=== PATIENT | female | born 1950 | race Caucasian/White ===

== ENCOUNTER 2021-07-02 22:58 | Inpatient (IN) | payer MEDICARE, OTHER ==
[~2021-07-02] VITALS: Ht 175.3 cm; Wt 72.6 kg
--- NOTE | 2021-07-02 23:15 | NUR ---
SYBIL FROM [facility] FOR DIRECT ADMIT TO PSYCH UNIT. PT IS MEDICALLY CLEARED AT THE ER AND NEEDS PSYCH EVAL. PT WAS ASSISTED IN BED 13 ER UNDER SUPERVISION OF A SITTER. SI PRECAUTION IMPLEMENTED . VSS. WILL CONT TO MONITOR ,
--- NOTE | 2021-07-03 00:35 | NUR ---
[facility] SWAB COLLECTED AND SENT TO LAB. PATIENT'S BELONGINGS LIST DONE.
[2021-07-03] MEDS ORDERED: METO25TA4 PO (01:49)
[2021-07-03] MEDS ORDERED: MELA5TAB PO (01:49)
[2021-07-03] MEDS ORDERED: DIVA-78 PO (01:49)
[2021-07-03] MEDS ORDERED: AMLO-212 PO (01:49)
[2021-07-03] MEDS ORDERED: QUET50TA PO (01:49)
[2021-07-03] MEDS ORDERED: FLUO20CA36 PO (01:49)
--- NOTE | 2021-07-03 01:55 | NUR ---
REPORT GIVEN TO BYRON AT [facility]
--- NOTE | 2021-07-03 02:16 | NUR ---
PT WAS TTRANSFERRED TO [facility] IN STABLE CONDITION
[2021-07-03] MEDS ORDERED: clonazePAM 0.5 MG TABLET PO PRN (03:00)
[2021-07-03] MEDS ORDERED: BLOOD SUGAR DIAGNOSTIC 1 EACH STRIP IN ONE (03:00)
[2021-07-03] MEDS ORDERED: MAGNESIUM HYDROXIDE 30 ML UDC PO PRN (03:00)
--- NOTE | 2021-07-03 03:52 | NUR ---
[facility] INDUSTRIAL GAS SERVICER NOTES: PATIENT ARRIVED THIS UNIT ON A STRETCHER WITH AN ER ESCORT AT 0225. PATIENT IS ON A 5150 HOLD FOR DTS AND GD. HOLD WAS PLACED ON 07/03/21 @ 0101. PER HOLD PATIENT VERBALIZED SI, HAS HX OF BIPOLAR AND DEPRESSION, HAS NOT BEEN COMPLIANT WITH HER MEDS, AND IS UNABLE TO CARE FOR HER SELF. UPON FACE TO FACE EVALUATION, PATIENT IS A/O X1-2, APPEARS DEPRESSED, FLAT AFFECT, LABILE, ANXIOUS, DISORGANIZED, DISORIENTED, AND UNABLE TO GIVE APPROPRIATE ANSWERS TO QUESTIONS. PATIENT RESPIRATION IS EVEN AND UNLABORED WITH EQUAL RISE AND FALL OF THE CHEST, ON ROOM AIR. PATIENT HAS NO S/S OF DISTRESS. PATIENT DENIES SI/HI AT THIS TIME. PATIENT ADVISED OF HER HOLD AND PATIENT RIGHTS BOOKLET AND PRESCRIPTION GUIDE BOOKLET GIVEN. PATIENT BELONGINGS CHECKED FOR CONTRABAND. SKIN ASSESSMENT DONE, PICTURES TAKEN AND PLACED IN PATIENT CHART. BS92MG/DL. PATIENT REFUSED TO SIGN ADMISSION PAPERWORK. PATIENT IS FULLY VACCINATED WITH PFIZER. PATIENT IS UNDER THE PSYCHIATRIC CARE OF DR. JARAMILLO AND MEDICAL CARE OF THERESE. MED RECON DONE. PATIENT ORIENTED TO ROOM AND STAFF. PATIENT HAS WEAK GAIT. PATIENT EDUCATED ON THE USE OF CALL CISNEROS TO ASK FOR ASSISTANCE. PATIENT BED SIDE RAILS UP X2 FOR SAFETY. BED ALARM ON. BED LOCKED AND IN LOWEST POSITION. PATIENT OFFERED FLUID AND SNACKS TOLERATED. WILL CONTINUE TO MONITOR Q15 MINUTES FOR MOOD, SAFETY AND BEHAVIOR.
[2021-07-03 04:31] VITALS: BP 158/95
[2021-07-03 04:37] VITALS: BP 158/95
[2021-07-03 08:00] VITALS: BP 158/77
--- NOTE | 2021-07-03 09:00 | NUR ---
DR GRANDA REMINDED OF MED RECON FOR PT.
--- NOTE | 2021-07-03 09:00 | NUR ---
CALLED PT'S SISTER NUMBER. NO ANSWER AT THIS TIME.
--- NOTE | 2021-07-03 09:49 | NUR ---
VIDYA Initial Discharge Plan: Patient currently resides at home located at [address] [place] [address]; ([phone]). Patient would want to return back home upon dc. Patient's sister Khalif ([phone]) is involved in patient's care. VIDYA will work with the MD and treatment team to coordinate appropriate discharge.
[2021-07-03] MEDS: QUETIAPINE FUMARATE 25 MG TABLET PO SCH ×3 (10:20→21:09)
--- NOTE | 2021-07-03 10:35 | NUR ---
VIDYA Family Contact: VIDYA spoke with patient's sister Khalif ([phone]) and discussed treatment and discharge plan. Sister stated she is the DPOA and will send the documents. Sister expressed that pt has had three brain injuries. VIDYA shared this information with JUNE Metcalf.
--- NOTE | 2021-07-03 11:00 | NUR ---
PER SOCIAL SERVICE, FAMILY MEMBER MENTIONED PT HAS BEEN EXPOSED TO A COVID POSITIVE PERSON PRIOR TO ADMISSION TO [facility]. DR GRANDA ORDERED RAPID COVID ANTIGEN TEST STAT.
--- NOTE | 2021-07-03 12:30 | NUR ---
RAPID COVID 19 TEST RESULT IS NEGATIVE.
[2021-07-03 16:00] VITALS: BP 145/79
--- NOTE | 2021-07-03 19:46 | NUR ---
[facility] RN NOTES: PATIENT IS AMBULATING WITH UNSTEADY GAIT, WHEN OFFERED A WALKER BUT REFUSED. PER PATIENT, "I DON'T NEED THAT, I'M FINE".
[2021-07-03 20:00] VITALS: BP 130/86
[2021-07-03] MEDS: TRAZODONE 50 MG TABLET PO SCH (21:09)
--- NOTE | 2021-07-04 06:23 | NUR ---
[facility] RN NOTES: PATIENT REFUSED AM LABS.
[2021-07-04 08:00] VITALS: BP 116/60
[2021-07-04] MEDS: QUETIAPINE FUMARATE 25 MG TABLET PO SCH ×3 (08:22→21:25)
[2021-07-04 12:17] LABS: ALBUMIN 2.9 g/dL (3.4-5.0); BILIRUBIN,TOTAL 0.3 mg/dL (0.2-1.0); CALCIUM, SERUM 9.7 mg/dL (8.5-10.1); CREATININE 0.8 mg/dL (0.6-1.3); POTASSIUM 4.4 mmol/L (3.5-5.1); TOTAL PROTEIN, SERUM 6.3 g/dL (6.4-8.2)
[2021-07-04 12:37] LABS: CHOLESTEROL 246 mg/dL (<200); HDL CHOLESTEROL 49 mg/dL (40-60); LDL 165 mg/dL (0-99); TRIGLYCERIDES 128 mg/dL (30-150)
--- NOTE | 2021-07-04 13:29 | NUR ---
RN-CO: DR JARAMILLO MADE AWARE THAT THE LEGAL HOLD IS EXPIRING.
[2021-07-04 16:00] VITALS: BP 118/70
--- NOTE | 2021-07-04 16:53 | NUR ---
RN-CO: ENCOURAGED TO INCREASE FLUID INTAKE. OFFERED WATER Q 3 HOURS.
[2021-07-04] MEDS: ACETAMINOPHEN 325 MG TABLET PO PRN (18:27)
[2021-07-04] MEDS: ATORVASTATIN 10 MG TABLET PO SCH (21:25)
[2021-07-04] MEDS: TRAZODONE 50 MG TABLET PO SCH (21:25)
[2021-07-04] MEDS: TEMAZEPAM 7.5 MG CAPSULE PO PRN (21:26)
[2021-07-05 08:00] VITALS: BP 154/85
[2021-07-05] MEDS: ASPIRIN EC 81 MG TABLET.DR PO SCH (09:36)
[2021-07-05] MEDS: QUETIAPINE FUMARATE 25 MG TABLET PO SCH ×3 (09:36→21:07)
[2021-07-05] MEDS: ACETAMINOPHEN 325 MG TABLET PO PRN ×2 (10:53→20:23)
[2021-07-05 16:00] VITALS: BP 121/64
--- NOTE | 2021-07-05 19:30 | NUR ---
[facility] RN NOTE, RECEIVED PATIENT AWAKE AND IN BED, PATIENT HAS NO S/S OR COMPLAINTS OF PAIN AT THIS TIME. PATIENT IS DISPLAYING NO S/S OF APPARENT DISTRESS AT THIS TIME. PATIENT BREATHING IS UNLABORED WITH EQUAL RISE AND FALL OF THE CHEST. PATIENT IS ALERT AND ORIENTED X 2 ON ROOM AIR WITH A SPO2 99%. PATIENT IS COMPLIANT WITH MEDICATIONS, LABILE, CAN BE IRRITABLE AT THIS TIME, POLITE, ISOLATIVE, AND COOPERATIVE. PATIENT DENIES SUICIDAL AND HOMICIDAL IDEATIONS AT THIS TIME. PATIENT ASSISTED WITH TURNING AND REPOSITIONING Q2HR AND PRN FOR COMFORT AND CIRCULATION. PATIENT HAS NO NEEDS AT THIS TIME. PATIENT EDUCATED ON THE USE OF THE CALL CISNEROS. PATIENT BED SIDE RAILS UP X 2 FOR SAFETY. PATIENT BED IS LOCKED, LOW, WITH BED ALARM ON. WILL CONTINUE TO MONITOR THIS PATIENT Q15 MINUTES WITH THE HELP OF STAFF TO MAINTAIN SAFETY.
--- NOTE | 2021-07-05 20:23 | NUR ---
[facility] RN NOTE, PATIENT HAS A COMPLAINT OF CHRONIC BILATERAL HAND AT 2 OUT 10 ON THE PAIN SCALE AND IS REQUESTING TYLENOL AT THIS TIME. PATIENT VITAL SIGNS ARE STABLE. GAVE TYLENOL 650MG PO Q6HR PRN ORDERED. WILL REASSESS PAIN AND I WILL CONTINUE TO MONITOR THIS PATIENT WITH THE HELP OF STAFF.
[2021-07-05 20:34] VITALS: BP 121/61
[2021-07-05] MEDS: ATORVASTATIN 10 MG TABLET PO SCH (21:07)
[2021-07-05] MEDS: TRAZODONE 50 MG TABLET PO SCH (21:07)
[2021-07-06 08:00] VITALS: BP 155/71
--- NOTE | 2021-07-06 08:42 | NUR ---
DPOA Documents: Patient's sister Khalif ([phone]) sent DPOA documents to this telegraphic typewriter repairer and sent a history of pt's medical issues. SW placed in patient's chart.
[2021-07-06] MEDS: ASPIRIN EC 81 MG TABLET.DR PO SCH (09:07)
[2021-07-06] MEDS: QUETIAPINE FUMARATE 25 MG TABLET PO SCH ×3 (09:07→21:01)
[2021-07-06] MEDS: ACETAMINOPHEN 325 MG TABLET PO PRN ×3 (10:30→22:50)
--- NOTE | 2021-07-06 10:33 | NUR ---
Patient c/o right wrist pain 6/10, given Tylenol as prn order.
--- NOTE | 2021-07-06 12:10 | NUR ---
VIDYA Family Contact: VIDYA notified patient's DPOA Khalif ([phone]) that pt's hearing is today for 5250. VIDYA contacted multiple times and left a voicemail.
--- NOTE | 2021-07-06 12:11 | NUR ---
Court Hearing: Patient's court hearing for 2260 was today and it was upheld for GD.
--- NOTE | 2021-07-06 12:12 | NUR ---
VIDYA Family Contact: SW notified patient's DPOA Khalif ([phone]) and left a voicemail of pt's 5250 outcome.
[2021-07-06 16:00] VITALS: BP 134/92
--- NOTE | 2021-07-06 17:30 | NUR ---
Given Tylenol for right wrist pain 6/10 pain scale. Reassessed pain in one hour and patient denies pain at this time. Continue to monitor.
[2021-07-06 20:26] VITALS: BP_SYST 77
[2021-07-06] MEDS: ATORVASTATIN 10 MG TABLET PO SCH (21:01)
[2021-07-06] MEDS: TRAZODONE 50 MG TABLET PO SCH (21:01)
[2021-07-07] MEDS: TEMAZEPAM 7.5 MG CAPSULE PO PRN (01:09)
--- NOTE | 2021-07-07 01:09 | NUR ---
[facility] NOTES: ANXIETY PATIENT C/O INABILITY TO SLEEP. PRN RESTORIL 15MG PO GIVEN. WILL CONTINUE TO MONITOR. Addendum: 07/07/21 at 0413 by KRISTOPHER HAYES RN CORRECTION: FOR INSOMNIA
[2021-07-07 08:00] VITALS: BP 158/78
[2021-07-07] MEDS: ASPIRIN EC 81 MG TABLET.DR PO SCH (08:24)
[2021-07-07] MEDS: QUETIAPINE FUMARATE 25 MG TABLET PO SCH ×3 (08:25→22:15)
[2021-07-07 16:00] VITALS: BP 133/71
[2021-07-07] MEDS: ACETAMINOPHEN 325 MG TABLET PO PRN (16:40)
[2021-07-07 20:11] VITALS: BP 144/74
[2021-07-07 20:38] VITALS: BP 144/74
[2021-07-07] MEDS: TRAZODONE 50 MG TABLET PO SCH (22:15)
[2021-07-07] MEDS: ATORVASTATIN 10 MG TABLET PO SCH (22:15)
[2021-07-08 08:00] VITALS: BP 137/73
[2021-07-08] MEDS: QUETIAPINE FUMARATE 25 MG TABLET PO SCH ×3 (08:44→21:49)
[2021-07-08] MEDS: ASPIRIN EC 81 MG TABLET.DR PO SCH (08:45)
[2021-07-08 16:00] VITALS: BP 140/91
[2021-07-08] MEDS: ACETAMINOPHEN 325 MG TABLET PO PRN ×2 (18:01→20:00)
[2021-07-08 20:00] VITALS: BP 153/80
[2021-07-08] MEDS: TRAZODONE 50 MG TABLET PO SCH (21:49)
[2021-07-08] MEDS: ATORVASTATIN 10 MG TABLET PO SCH (21:49)
[2021-07-09 08:00] VITALS: BP 139/91
[2021-07-09] MEDS: ASPIRIN EC 81 MG TABLET.DR PO SCH (08:12)
[2021-07-09] MEDS: QUETIAPINE FUMARATE 25 MG TABLET PO SCH ×2 (08:12→17:36)
[2021-07-09] MEDS: SERTRALINE HCL 25 MG TABLET PO SCH (09:21)
--- NOTE | 2021-07-09 15:29 | NUR ---
VIDYA Individual Therapy: SW met with patient to discuss patient's presenting problem depression. Patient presented with depressed mood. She did appear to have appropriate eye contact. Patient did appear to be anxious and disorganized. SW explored pt.s progress. Pt. stated she wanted medication to cope with her aggression toward her sister at home. Pt. stated her sister was her caregiver and did not allow her to do things at home. Pt. stated she did not want to be angry with her sister and was excited about possibly receiving new medicine from the psychiatrist. Pt. is understanding of her current symptom and mental health. SW provided active listening and empathic understanding.
[2021-07-09 16:00] VITALS: BP 146/79
[2021-07-09] MEDS: ACETAMINOPHEN 325 MG TABLET PO PRN (17:54)
--- NOTE | 2021-07-09 17:56 | NUR ---
Patient c/o neck pain 01/06 medicated with Tylenol 650mg will continue to monitor for pain .
[2021-07-09 20:07] VITALS: BP 140/54
[2021-07-09] MEDS: ATORVASTATIN 10 MG TABLET PO SCH (21:14)
[2021-07-09] MEDS: TEMAZEPAM 7.5 MG CAPSULE PO PRN (21:14)
[2021-07-09] MEDS: TRAZODONE 50 MG TABLET PO SCH (21:14)
[2021-07-09] MEDS ORDERED: QUETIAPINE FUMARATE 25 MG TABLET PO SCH (22:00)
[2021-07-10] MEDS: SERTRALINE HCL 25 MG TABLET PO SCH (09:54)
[2021-07-10] MEDS: ASPIRIN EC 81 MG TABLET.DR PO SCH (09:54)
[2021-07-10] MEDS: QUETIAPINE FUMARATE 25 MG TABLET PO SCH ×3 (09:55→21:09)
[2021-07-10 11:29] VITALS: BP 127/80
[2021-07-10 16:00] VITALS: BP 158/90
[2021-07-10 20:00] VITALS: BP 116/65
[2021-07-10 20:05] VITALS: BP 116/65
[2021-07-10] MEDS: ATORVASTATIN 10 MG TABLET PO SCH (21:07)
[2021-07-10] MEDS: TRAZODONE 50 MG TABLET PO SCH (21:35)
[2021-07-11 08:00] VITALS: BP 148/73
[2021-07-11] MEDS: QUETIAPINE FUMARATE 25 MG TABLET PO SCH ×3 (08:20→21:14)
[2021-07-11] MEDS: ASPIRIN EC 81 MG TABLET.DR PO SCH (08:21)
--- NOTE | 2021-07-11 08:40 | NUR ---
VIDYA Family Contact: VIDYA attempted to contact CLIFFGLORIA Cuadra ([phone]) phone number stated that she cannot accept calls at this time. VIDYA will attempt again.
--- NOTE | 2021-07-11 08:53 | NUR ---
SW Individual Note: SW met with patient to discuss patient's presenting problem depression. Patient presented with a depressed mood and appeared restless. Patient provided appropriate eye contact. SW explored patients progress. Pt. stated she wanted to explore ways to be less angry with her sister at home. Pt. stated she was having less SI. Pt. stated they were feeling improvement. Pt. stated she wanted her sister to visit and was going to call her today. SW provided active listening.
[2021-07-11] MEDS: SERTRALINE HCL 25 MG TABLET PO SCH (09:37)
[2021-07-11 16:00] VITALS: BP 122/71
[2021-07-11] MEDS: ACETAMINOPHEN 325 MG TABLET PO PRN (16:38)
--- NOTE | 2021-07-11 18:56 | NUR ---
RN ENDING NOTES PATIENT AMBULATED IN HALLWAY MOST OF DAY SHIFT GAIT STEADY, ABLE TO MAKE NEEDS KNOWN, A & 0 X2, REDIRECTED AND EXPLAINED MEDICATIONS TO HER, REPEATED WORDS AND WORD SALAD OFTEN, ABLE TO MAKE NEEDS KNOWN HOWEVER VERY NEEDY AND ATTENTION SEEKING CONSTANTLY NEEDING VALIDATION AND ATTENTION, 1800 SHE WENT TO BED TO SLEEP, BED LOW TO FLOOR, WHEELS LOCKED, ALL NEEDS TENDED FOR IN A TIMELY MANNER.
[2021-07-11 20:00] VITALS: BP 107/56
[2021-07-11] MEDS: TRAZODONE 50 MG TABLET PO SCH (21:14)
[2021-07-11] MEDS: ATORVASTATIN 10 MG TABLET PO SCH (21:14)
[2021-07-12 08:00] VITALS: BP 136/63
[2021-07-12] MEDS: QUETIAPINE FUMARATE 25 MG TABLET PO SCH ×4 (08:12→21:08)
[2021-07-12] MEDS: ASPIRIN EC 81 MG TABLET.DR PO SCH (08:12)
[2021-07-12] MEDS: SERTRALINE HCL 25 MG TABLET PO SCH (08:12)
--- NOTE | 2021-07-12 08:17 | NUR ---
Seen by Ashley Staton with new orders to increase Seroquel to 25mg by mouth twice a day and increase bedtime dose of Seroquel to 75mg by mouth, orders inputted by Ewelnia Staton. No apparent distress noted with patient at this time, will monitor closely for any changes.
--- NOTE | 2021-07-12 08:39 | NUR ---
VIDYA Family Contact: VIDYA attempted to contact CLIFFGLORIA Cuadra ([phone]) phone number stated that she cannot accept calls at this time. VIDYA will attempt again.
--- NOTE | 2021-07-12 08:44 | NUR ---
VIDYA Note: VIDYA asked pt why sister Khalif is not answering phone calls. She stated that she [place] be [place] and she did not delete her voicemails. She stated it might be full and we are unable to leave her a voicemail.
--- NOTE | 2021-07-12 10:25 | NUR ---
VIDYA Coordination of Care: Patient was referred for intake evaluation at [facility] located at [address] [place] [address] [address], [place] [address]; ([phone]) on July 19 at 10:30AM scheduled by Joseline.
[2021-07-12] MEDS: ACETAMINOPHEN 325 MG TABLET PO PRN (10:36)
--- NOTE | 2021-07-12 10:36 | NUR ---
Tylenol 650 mg given PO as needed for generalized body pain 2/10 per MD order when non pharmacological measures ineffective, will reassess pain in 30-60minutes, will continue to monitor for any changes.
[2021-07-12 16:00] VITALS: BP 154/98
[2021-07-12] MEDS: TRAZODONE 50 MG TABLET PO SCH (21:07)
[2021-07-12] MEDS: ATORVASTATIN 10 MG TABLET PO SCH (21:08)
[2021-07-12] MEDS: TEMAZEPAM 7.5 MG CAPSULE PO PRN (23:29)
--- NOTE | 2021-07-12 23:31 | NUR ---
[facility] RN NOTES: PATIENT REQUESTED FOR SLEEP MEDICATION D/T INSOMNIA. RESTORIL 15MG GIVEN PO PRN ORDERED AT 2329. WILL CONTINUE TO MONITOR.
[2021-07-13] MEDS: ACETAMINOPHEN 325 MG TABLET PO PRN ×2 (07:15→15:18)
[2021-07-13 08:00] VITALS: BP 133/87
[2021-07-13] MEDS: QUETIAPINE FUMARATE 25 MG TABLET PO SCH ×3 (08:21→21:01)
[2021-07-13] MEDS: ASPIRIN EC 81 MG TABLET.DR PO SCH (08:21)
[2021-07-13] MEDS: SERTRALINE HCL 25 MG TABLET PO SCH (08:21)
--- NOTE | 2021-07-13 10:26 | NUR ---
VIDYA Family Contact: VIDYA attempted to contact CLIFFGLORIA Cuadra ([phone]) phone number stated that she cannot accept calls at this time. VIDYA will attempt again.
[2021-07-13 16:00] VITALS: BP 129/61
[2021-07-13] MEDS: TRAZODONE 50 MG TABLET PO SCH (21:01)
[2021-07-13] MEDS: ATORVASTATIN 10 MG TABLET PO SCH (21:01)
[2021-07-14] MEDS: ACETAMINOPHEN 325 MG TABLET PO PRN ×2 (06:17→12:20)
--- NOTE | 2021-07-14 06:19 | NUR ---
[facility] RN NOTE, PATIENT HAS A COMPLAINT OF A HEADACHE AT 2 OUT 10 ON THE PAIN SCALE AND IS REQUESTING TYLENOL AT THIS TIME. PATIENT VITAL SIGNS ARE STABLE. GAVE TYLENOL 650MG PO Q6HR PRN ORDERED. WILL REASSESS PAIN AND I WILL CONTINUE TO MONITOR THIS PATIENT WITH THE HELP OF STAFF.
[2021-07-14 08:00] VITALS: BP 130/79
[2021-07-14] MEDS: QUETIAPINE FUMARATE 25 MG TABLET PO SCH ×3 (08:28→21:03)
[2021-07-14] MEDS: SERTRALINE HCL 25 MG TABLET PO SCH (08:28)
[2021-07-14] MEDS: ASPIRIN EC 81 MG TABLET.DR PO SCH (08:28)
[2021-07-14 12:53] LABS: BASOPHILS # (AUTO) 0.1 K/uL (0.0-0.2); BASOPHILS % (AUTO) 1.1 % (0.0-2.0); EOSINOPHILS % (AUTO) 7.2 % (0.0-6.0); HEMATOCRIT 38 % (33-45); HEMOGLOBIN 12.8 g/dL (11.5-14.8); LYMPHOCYTES # (AUTO) 1.7 K/uL (0.8-4.8); LYMPHOCYTES % (AUTO) 23.5 % (20.0-44.0); MEAN CORPUSCULAR HGB CONC 34 g/dl (31.0-36.0); MEAN CORPUSCULAR VOLUME 99 fL (82-100); MONOCYTES # (AUTO) 0.6 K/uL (0.1-1.30); MONOCYTES % (AUTO) 8.3 % (2.0-12.0); NEUTROPHILS # (AUTO) 4.3 K/uL (1.8-8.9); NEUTROPHILS % (AUTO) 59.9 % (43.0-81.0); PLATELET COUNT (AUTO) 218 K/uL (150-450); RED BLOOD CELL COUNT(AUTO) 3.86 MIL/uL (4.0-5.2); WHITE BLOOD COUNT (AUTO) 7.2 K/uL (4.3-11.0)
[2021-07-14 12:58] LABS: ALBUMIN 3.2 g/dL (3.4-5.0); BILIRUBIN,TOTAL 0.3 mg/dL (0.2-1.0); CALCIUM, SERUM 9.3 mg/dL (8.5-10.1); CREATININE 0.7 mg/dL (0.6-1.3); MAGNESIUM 2.2 mg/dL (1.8-2.4); POTASSIUM 4.2 mmol/L (3.5-5.1); TOTAL PROTEIN, SERUM 6.7 g/dL (6.4-8.2)
[2021-07-14 16:00] VITALS: BP 149/79
[2021-07-14] MEDS: TRAZODONE 50 MG TABLET PO SCH (21:02)
[2021-07-14] MEDS: ATORVASTATIN 10 MG TABLET PO SCH (21:03)
[2021-07-14 22:18] VITALS: BP 130/79
[2021-07-15] MEDS: TEMAZEPAM 7.5 MG CAPSULE PO PRN ×2 (01:01→21:42)
[2021-07-15 08:00] VITALS: BP 143/75
[2021-07-15] MEDS: ASPIRIN EC 81 MG TABLET.DR PO SCH (08:49)
[2021-07-15] MEDS: SERTRALINE HCL 25 MG TABLET PO SCH (08:49)
[2021-07-15] MEDS: QUETIAPINE FUMARATE 25 MG TABLET PO SCH ×3 (08:49→21:19)
[2021-07-15 16:00] VITALS: BP 118/74
[2021-07-15] MEDS: ACETAMINOPHEN 325 MG TABLET PO PRN (16:42)
[2021-07-15 20:00] VITALS: BP 120/66
--- NOTE | 2021-07-15 20:00 | NUR ---
[facility] NOTES PATIENT REFUSED WEEKLY SKIN ASSESSMENT. EXPLAINED RISKS AND BENEFITS. PATIENT CONTINUED TO REFUSE. PATIENT STATES, "I AM TIRED".
[2021-07-15] MEDS: ATORVASTATIN 10 MG TABLET PO SCH (21:19)
[2021-07-15] MEDS: TRAZODONE 50 MG TABLET PO SCH (21:19)
--- NOTE | 2021-07-15 21:42 | NUR ---
[facility] NOTES: INSOMNIA PATIENT C/O INABILITY TO SLEEP. PRN RESTORIL 15MG PO GIVEN. WILL CONTINUE TO MONITOR.
[2021-07-16 08:00] VITALS: BP 159/91
--- NOTE | 2021-07-16 08:38 | NUR ---
VIDYA Family Contact: VIDYA attempted to contact CLIFFGLORIA Cuadra ([phone]) phone number stated that she cannot accept calls at this time. VIDYA will attempt again.
[2021-07-16] MEDS: ASPIRIN EC 81 MG TABLET.DR PO SCH (08:46)
[2021-07-16] MEDS: SERTRALINE HCL 25 MG TABLET PO SCH (08:46)
[2021-07-16] MEDS: QUETIAPINE FUMARATE 25 MG TABLET PO SCH ×3 (08:47→21:20)
[2021-07-16] MEDS: ACETAMINOPHEN 325 MG TABLET PO PRN (19:21)
[2021-07-16 19:40] VITALS: BP 143/57
[2021-07-16] MEDS: ATORVASTATIN 10 MG TABLET PO SCH (21:20)
[2021-07-16] MEDS: TRAZODONE 50 MG TABLET PO SCH (21:20)
[2021-07-17 08:00] VITALS: BP 129/82
[2021-07-17] MEDS: ASPIRIN EC 81 MG TABLET.DR PO SCH (08:03)
[2021-07-17] MEDS: SERTRALINE HCL 25 MG TABLET PO SCH (08:03)
[2021-07-17] MEDS: QUETIAPINE FUMARATE 25 MG TABLET PO SCH ×3 (08:04→21:01)
--- NOTE | 2021-07-17 08:47 | NUR ---
VIDYA Family Contact: VIDYA attempted to contact CLIFFGLORIA Cuadra ([phone]) phone number stated that she cannot accept calls at this time. VIDYA will attempt again.
--- NOTE | 2021-07-17 09:35 | NUR ---
VIDYA Coordination of Care: Patient was referred for intake evaluation at [facility] located at [id number] [place] [address] [address], [place] [address]; ([phone]) on July 24 at 10:30AM scheduled by Joseline. This senior grant writer rescheduled pt's dc.
[2021-07-17] MEDS: ACETAMINOPHEN 325 MG TABLET PO PRN ×2 (12:38→20:36)
--- NOTE | 2021-07-17 12:39 | NUR ---
Tylenol 650 mg given PO as needed for generalized body pain. Will continue to monitor.
[2021-07-17] MEDS: MAG HYDROX/AL HYDROX/SIMETH 30 ML UDC PO PRN (18:54)
--- NOTE | 2021-07-17 18:55 | NUR ---
MAALOX GIVEN FOR INDIGESTION. WILL CONTINUE TO MONITOR.
[2021-07-17 20:00] VITALS: BP 150/79
--- NOTE | 2021-07-17 20:37 | NUR ---
[facility] NOTES PATIENT C/O HEADACHE ON A PAIN SCALE OF 3/10. PRN TYLENOL 650MG PO GIVEN. WILL CONTINUE TO MONITOR AND REASSESS.
[2021-07-17] MEDS: ATORVASTATIN 10 MG TABLET PO SCH (21:01)
[2021-07-17] MEDS: TRAZODONE 50 MG TABLET PO SCH (21:01)
[2021-07-18] MEDS: ACETAMINOPHEN 325 MG TABLET PO PRN ×2 (06:26→16:04)
[2021-07-18 08:00] VITALS: BP 156/91
[2021-07-18] MEDS: ASPIRIN EC 81 MG TABLET.DR PO SCH (08:29)
[2021-07-18] MEDS: QUETIAPINE FUMARATE 25 MG TABLET PO SCH ×2 (08:29→16:04)
[2021-07-18] MEDS: SERTRALINE HCL 25 MG TABLET PO SCH (08:29)
--- NOTE | 2021-07-18 08:30 | NUR ---
PT SIGNED VOLUNTARY STAY FORM @ 0830AM.
[2021-07-18] MEDS ORDERED: GUAIFENESIN/D-METHORPHAN HB 5 ML UDC PO PRN (11:30)
[2021-07-18] MEDS: MAG HYDROX/AL HYDROX/SIMETH 30 ML UDC PO PRN (15:24)
--- NOTE | 2021-07-18 15:25 | NUR ---
MAALOX GIVEN FOR INDIGESTION AT. WILL CONTINUE TO MONITOR.
[2021-07-18 16:00] VITALS: BP 141/82
--- NOTE | 2021-07-18 16:05 | NUR ---
TYLENOL 650MG FOR HEADACHE. WILL CONTINUE TO MONITOR
[2021-07-18 20:00] VITALS: BP 150/65
[2021-07-18 20:42] VITALS: BP 150/65
[2021-07-18] MEDS: TRAZODONE 50 MG TABLET PO SCH (21:01)
[2021-07-18] MEDS: ATORVASTATIN 10 MG TABLET PO SCH (21:01)
[2021-07-18] MEDS ORDERED: QUETIAPINE FUMARATE 25 MG TABLET PO SCH (22:00)
[2021-07-19 08:00] VITALS: BP 150/95
--- NOTE | 2021-07-19 08:12 | NUR ---
SW Discharge Note: Patient will return back home located at [address] [place] [address]; ([phone]). Patients sister Khalif ([phone]) will diamond picker pt at 12PM. Patients sister Khalif is aware of dc. Patient appears to be alert and oriented x2, and is happy to be going back home. Patient denies suicidal or homicidal ideation. Patient denies visual/auditory hallucinations. Patient referred to [facility] for primary doctor located at [address], [address], [place] [address] ([phone]). Patient was referred for intake evaluation at [facility] located at [address], [place] [address]; ([phone]) on July 24 at 10:30AM scheduled by Joseline. Patient was referred for home health services by [facility] (ph: [phone]; fax: [phone]) for medication management, physical therapy, and nursing follow ups they will follow up with pt for intake evaluation. Patient presents with euthymic mood and congruent affect.
[2021-07-19] MEDS: QUETIAPINE FUMARATE 25 MG TABLET PO SCH (08:30)
[2021-07-19] MEDS: SERTRALINE HCL 25 MG TABLET PO SCH (08:30)
[2021-07-19] MEDS: ASPIRIN EC 81 MG TABLET.DR PO SCH (08:30)
--- NOTE | 2021-07-19 09:53 | NUR ---
Amos ANESTHESIOLOGIST ATTENDING gave an order to D/C home today and she provided a prescriptions. Pt. is for discharge with Home Health Services and was referred to [facility] and [facility]. Pt. without distress, denies suicidal and homicidal. Belongings ready and discharge papers ready.
--- NOTE | 2021-07-19 10:11 | NUR ---
Shameka [facility] CODERS in the unit and made aware and the discharge and provided and prescription. Addendum: 07/19/21 at 1258 by SAM DAMON RN Pt. refused for skin pictures and said she is ok.
--- NOTE | 2021-07-19 12:00 | NUR ---
Pt. left the unit with belongings and being picked up by sister Khalif Wan. Pt. transported via a wheelchair and wheeled by staff. Left without distress: BP 151/91, MI 87, RR 18, temp 98.0 and oxygen sat 100%. Pt. and sister was instructed on meds to continue at home and agreed and advised on the referrals and the appointment and agreed.
== END 2021-07-19 12:00 | disposition home or self-care (01) | DRG 885 ==
LOC: ER 23:01 → GPS 07-03 01:13
PROVIDERS: ADMIT Nurse Practitioner Psychiatric/Mental Health; ATTEND Internal Medicine
DX: F31.30 Bipolar disorder, current episode depressed, mild or moderate severity, unspecified (principal); F01.50 Vascular dementia, unspecified severity, without behavioral disturbance, psychotic disturbance, mood disturbance, and anxiety; R45.851 Suicidal ideations; I10 Essential (primary) hypertension; G47.00 Insomnia, unspecified; Z86.12 Personal history of poliomyelitis; Z91.81 History of falling; Z96.641 Presence of right artificial hip joint; M62.81 Muscle weakness (generalized); B91 Sequelae of poliomyelitis; R29.818 Other symptoms and signs involving the nervous system; R26.81 Unsteadiness on feet; S09.90XS Unspecified injury of head, sequela; X58.XXXS Exposure to other specified factors, sequela
CPT/HCPCS: 36415; 70450-TC; 73502; 73590-TC; 80053-TC; 80061-TC; 82962-TC; 83735-TC; 85025-TC; 87081-TC; 97116-TC; 97530-TC